=== PATIENT | female | born 1960 | race Caucasian/White ===

== ENCOUNTER 2021-10-28 07:34 | Outpatient (REF) | payer OTHER, SELFPAY ==
[2021-10-28 11:07] LABS: MANUAL DIFF FLAG NO
[2021-10-28 11:16] LABS: Basophils Percent Auto 0.5 % (0-2); Eosinophils Absolute Auto 0.1 X10*3/uL (0.0-0.4); Eosinophils Percent Auto 1.9 % (0-4); Hematocrit 43.9 % (37.0-47.0); Hemoglobin 14.2 g/dl (12.0-16.0); Imm Gran Abs Auto 0.01 X10*3/uL (0.00-0.03); Imm Gran Pct Auto 0.2 % (0.0-0.4); Lymphocytes Absolute Auto 2.5 X10*3/uL (1.2-4.9); Lymphocytes Percent Auto 44.4 % (20-40); Mean Corpuscular HGB Conc 32.3 g/dl (31.0-35.0); Mean Corpuscular Hemoglobin 29.9 pg (27.0-33.0); Mean Corpuscular Volume 92.4 fL (80.0-98.0); Mean Platelet Volume 11.6 fL (9.4-12.3); Monocytes Absolute Auto 0.4 X10*3/uL (0.1-1.2); Monocytes Percent Auto 6.1 % (2-11); Neutrophils Absolute Auto 2.7 x10*3/uL (2.0-8.3); Neutrophils Percent Auto 46.9 % (45-73); Platelet Count 230 X10*3/uL (160-400); Red Blood Count 4.75 X10*6/uL (4.20-5.50); Red Cell Distribution Width 12.7 % (11.0-16.0); White Blood Count 5.7 X10*3/uL (4.8-10.8)
[2021-10-28 11:48] LABS: Alanine Aminotransferase 13 U/L (0-31); Albumin Level 4.1 g/dL (3.5-5.0); Alkaline Phosphatase 69 U/L (39-117); Anion Gap 10 (12-20); Aspartate Amino Transferase 19 U/L (5-31); Bilirubin Total 0.4 mg/dL (0.0-1.0); Blood Urea Nitrogen 14 mg/dL (9-16); Calcium 8.9 mg/dL (8.4-10.2); Carbon Dioxide 28 mmol/L (22-29); Chloride 106 mmol/L (96-108); Cholesterol 198 mg/dL; Estimated Glomerular Filt Rate > 60; Glucose Fasting 87 mg/dL (60-99); HDL Cholesterol 86 mg/dL; LDL Cholesterol Calculated 98 mg/dl; Potassium 3.9 mmol/L (3.3-5.1); Sodium 140 mmol/L (135-145); Total Protein 6.6 g/dL (6.5-8.0); Triglycerides 71 mg/dL
[2021-10-28 12:08] LABS: Thyroid Stimulating Hormone 2.33 uIU/mL (0.32-4.0); Vitamin D 25-OH Total 35.1 ng/mL (>30)
== END 2021-10-28 07:35 | disposition home or self-care (01) ==
LOC: HO.MANLDS 07:34
PROVIDERS: Visit Provider Internal Medicine
DX: Z00.00 Encounter for general adult medical examination without abnormal findings (principal)
CPT/HCPCS: 36415; 80053; 80061; 82306; 84443; 85025

== ENCOUNTER 2023-11-12 07:34 | Outpatient (REF) | payer OTHER, SELFPAY ==
[2023-11-12 13:14] LABS: MANUAL DIFF FLAG NO
[2023-11-12 13:20] LABS: Basophils Percent Auto 0.5 % (0-2); Eosinophils Absolute Auto 0.1 X10*3/uL (0.0-0.4); Eosinophils Percent Auto 1.6 % (0-4); Hematocrit 44.7 % (37.0-47.0); Hemoglobin 14.5 g/dl (12.0-16.0); Imm Gran Abs Auto 0.01 X10*3/uL (0.00-0.03); Imm Gran Pct Auto 0.2 % (0.0-0.4); Lymphocytes Absolute Auto 2.2 X10*3/uL (1.2-4.9); Lymphocytes Percent Auto 39.2 % (20-40); Mean Corpuscular HGB Conc 32.4 g/dl (31.0-35.0); Mean Corpuscular Hemoglobin 30.5 pg (27.0-33.0); Mean Corpuscular Volume 93.9 fL (80.0-98.0); Mean Platelet Volume 11.3 fL (9.4-12.3); Monocytes Absolute Auto 0.3 X10*3/uL (0.1-1.2); Monocytes Percent Auto 5.4 % (2-11); Neutrophils Absolute Auto 2.9 x10*3/uL (2.0-8.3); Neutrophils Percent Auto 53.1 % (45-73); Platelet Count 224 X10*3/uL (160-400); Red Blood Count 4.76 X10*6/uL (4.20-5.50); Red Cell Distribution Width 13.2 % (11.0-16.0); White Blood Count 5.5 X10*3/uL (4.8-10.8)
[2023-11-12 13:54] LABS: Alanine Aminotransferase 14 U/L (0-31); Albumin Level 4.1 g/dL (3.5-5.0); Alkaline Phosphatase 68 U/L (39-117); Anion Gap 11 (12-20); Aspartate Amino Transferase 24 U/L (5-31); Bilirubin Total 0.4 mg/dL (0.0-1.0); Blood Urea Nitrogen 15 mg/dL (9-16); Calcium 9.6 mg/dL (8.4-10.2); Carbon Dioxide 27 mmol/L (22-29); Chloride 106 mmol/L (96-108); Cholesterol 209 mg/dL (<200); Estimated Glomerular Filt Rate > 60; Glucose Random 82 mg/dL (60-115); HDL Cholesterol 90 mg/dL (>40); LDL Cholesterol Calculated 108 mg/dL (<100); Potassium 4.2 mmol/L (3.3-5.1); Sodium 140 mmol/L (135-145); Total Protein 6.6 g/dL (6.5-8.0); Triglycerides 58 mg/dL (<150)
== END 2023-11-12 07:35 | disposition home or self-care (01) ==
LOC: HO.MANLDS 07:34
PROVIDERS: Visit Provider Internal Medicine
DX: Z00.00 Encounter for general adult medical examination without abnormal findings (principal)
CPT/HCPCS: 36415; 80053; 80061; 85025

== ENCOUNTER 2024-11-25 07:37 | Outpatient (REF) | payer MEDICARE, SELFPAY ==
--- OUTSIDE RECORDS SUMMARY | 2024-11-25 07:39 | XMS_ITS | Clinical Summary ---
Author Organization [facility] Address [address] [address] Phone Care Team Providers Care Online Project Manager Name Role Phone Dougie Dawn Primary Care Provider Allergies No known active allergies Medications valACYclovir (VALTREX) 1000 MG tablet X 3 days prn 20 tablet 2 08/20/2023 Active estradiol-noreth indrone acet (ACTIVELLA 0.5) 0.5-0.1 mg per tablet Take 1 tablet by mouth daily. 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 Assessment & Plan (08/20/2023 1:59 PM EDT): Reviewed potential risks and benefits of extended hormone replacement therapy. As she has been off of HRT for a few months, would recommend transdermal estradiol and oral progesterone if she chooses to restart. Discussed alternatives including low- dose SSRI, gabapentin, and Veozah. After discussion, she is interested in a trial of gabapentin nightly. Medication instructions reviewed and Rx sent to pharmacy Assessment & Plan (08/15/2022 12:12 PM EDT): We discussed hx of debilitating mood alteration, sleep issues, vasomotor sx with menopause prior to using HRT. She last tried to stop perhaps nine years ago and sx recurred. She has tried acupuncture for vasomotor sx without relief. We reviewed risks of HRT which increase over years of use and advancing age. She expresses understanding and strongly wants to continue for now; she agrees to trial off HRT after the summer to assess current status of sx. She will call if can't tolerate this for refills as desired. Assessment & Plan (12/09/2020 4:03 PM EDT): Deirdre will continue with HRT regimen at this time. Risks reviewed including blood clot/stroke, cardiovascular events, breast cancer; we briefly discussed data showing that risks do increase with years of use/age. She is aware and opts to continue for now. We reviewed rationale/need for yearly visit/exam/follow up. Encounters Date Type Department Care Team Description 11/12/[address] [facility] Department [address] [place] [address] Dougie Dawn, DO Encounter for screening for osteoporosis (Primary Dx) from Last 3 Months Immunizations Immunization Administration Dates Next Due COVID-19 (Pre-02/12) Pfizer Vaccine, mRNA, PF 07/29/2021,03/08/2021,08/18/2020,2020 Zoster recombinant 01/16/2022,11/14/2021 Family History Medical History Relation Comments No Known Problems Father Hypertension Mother Stroke Mother Relation Status Comments Father Mother Alive Social History Tobacco Use Types Packs/Day Years Used Date Smoking Tobacco: Former Cigarettes 0.3 2.2 0 05/01/1976 - 05/01/1977 Smokeless Tobacco: Never Tobacco Cessation:Counseling Given: Not Answered Alcohol Use Standard Drinks/Week Comments Yes 3 (1 standard drink = 0.6 oz pur e alcohol) socially Education Answer Date Recorded Are you interested in more education? Not on nellie e 08/18/2022 Are you concerned about learning? Not on file 08/18/2022 No 08/18/2022 No 08/18/2022 Digital Access Answer Date Recorded No 09/18/2022 No 09/18/2022 Reliable internet access at home? Not on file 09/18/2022 Device with a working camera? Not on file Comments No Sex and Gender Information Value Date Recorded Sex Assigned at Not on file Legal Sex Female 9:50 PM EDT Gender Identity Not on file Sexual Orientation Not on file Last Filed Vital Signs Vital Sign Reading Time Taken Comments Blood Pressure 118/60 08/20/2023 10:41 AM EDT Pulse - - Temperature - - Respiratory Rate - - Oxygen Saturation - - Inhaled Oxygen Concentration - - Weight 65.3 kg (144 lb) 08/20/2023 10:41 AM EDT Height 165.1 cm (5' 5 ) 08/20/2023 10:41 AM EDT Body Mass Index 23.96 08/20/2023 10:41 AM EDT Plan of Treatment Health Maintenance Due Date Last Done Comments Adult Td,Tdap Booster 1960 LIPID PANEL 1958 DEPRESSION SCREENING 1970 HEPATITIS C SCREENING 1976 COLOGUARD 11/05/2003 COLONOSCOPY 11/05/2003 COLORECTAL CANCER SCREENING 11/05/2003 FIT TEST 11/05/2003 FOBT 11/05/2003 SIGMOIDOSCOPY 11/05/2003 VIRTUAL COLONOSCOPY 11/05/2003 PNEUMOCOCCAL VACCINES (50+ years) (1 of 1 - PCV) 2008 OSTEOPOROSIS SCREENING INITIAL (ONE-TIME) 11/05/2023 COVID-19 VACCINE (2023- season) 2023 07/29/2021, 07/29/2021, 03/08/2021, Additional history exists MAMMOGRAM 03/12/2026 03/12/2024, 05/0 06/2021, 04/10/2018 RSV VACCINE (1 - 1-dose 75+ series) 2033 ZOSTER VACCINES Completed 01/16/2022, 11/14/2021 SMOKING STATUS SCREENING (Once After 26 Yrs) Completed 03/12/2024 HEPATITIS A VACCINES Aged Out No long er eligible based on patient's age to complete this topic HIB VACCINES Aged Out No longer eligi ble based on patient's age to complete this topic MENINGOCOCCAL VACCINES (ACWY) Aged Out No longer eligible based on patient's age to complete this topic MENINGOCOCCAL VACCINES (B) Aged Out N o longer eligible based on patient's age to complete this topic Medical Devices Not on file Procedures Procedure Name Priority Date/Time Associated Diagnosis Comments BI MAMMOGRAM SCREENING WITH TOMOSYNTHESIS WITH CAD (BILATERAL) Routine 03/12/2024 10:36 AM EST Encounter for gynecological examination without abnormal finding from Last 3 Months or Most Recently Relevant to Health Maintenance Results * BI MAMMOGRAM SCREENING WITH TOMOSYNTHESIS WITH CAD (BILATERAL) (03/12/2024 10:36 AM EST) Anatomical Region Laterality Modality Breast Left, Breast Right, Breast Bilateral Bila teral Mammography 03/12/2024 1:16 PM EST Impressions 03/12/2024 1:17 PM EST No mammographic evidence of malignancy in either breast. Annual screening mammography is recommended. BI-RADS 2 BENIGN The patient will be notified of the results and recommendations. Narrative 03/12/2024 1:17 PM EST BI MAMMOGRAM SCREENING WITH TOMOSYNTHESIS WITH CAD (BILATERAL) Additional patient information: Screening. COMPARISON: Comparison is made with relevant prior imaging. Breast composition: There are scattered areas of fibroglandular density. FINDINGS: Previous reduction mammoplasty. No abnormal masses, suspicious calcifications, or other significant findings are identified mammographically in either breast. There has been no interval change. Procedure Note Agueda Cota MD - 03/12/2024 BI MAMMOGRAM SCREENING WITH TOMOSYNTHESIS WITH CAD (BILATERAL) Additional patient information: Screening. COMPARISON: Comparison is made with relevant prior imaging. Breast composition: There are scattered areas of fibroglandular density. FINDINGS: Previous reduction mammoplasty. No abnormal masses, suspicious calcifications, or other significantfindings are identified mammographically in either breast. There has been no interval change. IMPRESSION: No mammographic evidence of malignancy in either breast. Annual screening mammography is recommended. BI-RADS 2 BENIGN The patient will be notified of the results and recommendations. Margie Shirley MD IMG MG EXAMS Final Result from Last 3 Months or Most Recently Relevant to Health Maintenance [place] [address] [address] MEDICARE PPO BLUE REPLACEMENT MEDICARE PART A & B MEDICARE PPO BLUE REPLACEMENT MEDICARE PART A & [place] [address] [place] [address] MEDICARE PPO BLUE REPLACEMENT MEDICARE PART A & B [facility] MEDICARE PPO BLUE REPLACEMENT MEDICARE PART A & B Member Subscriber Plan / Payer (Ef fective 2023-Present) Name:Ladonna Joshi Member ID:[id number] Relation to Subscriber:Self Name:Ladonna Joshi Subscriber ID:[id number] Payer ID:[id number] Group ID:Not on file Type:Medicare Address: [employer] [id number] MEDICARE PART A & B MEDICARE PART A & B Care Teams Online Project Manager Relationship Specialty Start Date End Date Dougie Dawn DO [email or web address] PCP - General Internal Medicine 09/04/18 Additional Source Comments The information contained in this document represents components of the legal health record. It is not the complete legal health record.[facility]
--- OUTSIDE RECORDS SUMMARY | 2024-11-25 07:39 | XMS_ITS | Encounter Summary ---
Author Organization [employer] Address [address] [place] [address] [address] [place] [address] Care Team Providers Care Sorter Pricer Name Role Phone Unavailable Primary Care Provider Unavailabl e Encounter Details Date Type Department Care Team (Latest Contact Info) Description 02/21/[address] [facility] CONVERSIONS Dental, Provider, DDS Social History Tobacco Use Types Packs/Day Years Used Date Smoking Tobacco: Never Assessed Comments Unknown Sex and Gender Information Value Date Recorded Sex Assigned at Female 02/20/2022 10:36 AM EDT Legal Sex Female 10:36 AM EDT Gender Identity Female 02/20/2022 10:36 AM EDT Sexual Orientation Straight 02/20/2022 10 :36 AM EDT documented as of this encounter Plan of Treatment Not on file documented as of this encounter Visit Diagnoses Not on filedocumented in this encounter
--- OUTSIDE RECORDS SUMMARY | 2024-11-25 07:39 | XMS_ITS | Clinical Summary ---
Author Organization [facility] Address [address] [place] [address] Care Team Providers Care Hat Blocking Operator Name Role Phone Unavailable Primary Care Provider Unavailabl e Allergies No known active allergies Medications Medication Sig Dispensed Refills Start Date End Date Status DUAVEE 0.45-20 MG TABSIndications:Postme nopausal HRT (hormone replacement therapy) Take 1 tablet by mouth daily. 30 tablet 5 06/17/2018 Active valACYclovir (VALTREX) 1000 MG tabletIndications:HSV (herpes simplex virus) anogenital infection Take 1 tablet (1,000 mg total) by mouth daily as needed (for 3 days). 30 tablet 0 06/17/2018 Active Active Problems Problem Noted Date Diagnosed Date Marijuana use 06/17/2018 Breast cancer screening 12/11/2017 Colon cancer screening 12/11/2017 Encounter for gynecological examination without abnormal finding 08/11/2016 Cervical cancer screening 08/11/2016 Osteopenia 08/11/2016 HSV (herpes simplex virus) anogenital infection 07/02/2015 Menopausal and postmenopausal disorder 5 Postmenopausal HRT (hormone replacement therapy) 11/17/2014 Family History Medical History Relation Name Comments Hypertension Mother 76 Obesity Mother 76 Stroke Mother 76 Relation Name Status Comments Mother 76 Alive Social History Tobacco Use Types Packs/Day Years Used Date Smoking Tobacco: Former Cigarettes 0 0 Q uit: 1981 Smokeless Tobacco: Never Comments:pt quit 1981; date unknown Alcohol Use Standard Drinks/Week Comments Yes 2 (1 standard drink = 0.6 oz pur e alcohol) social weekends Sex and Gender Information Value Date Recorded Sex Assigned at Female 06/17/2018 10:49 AM EST Gender Identity Female 06/17/2018 10:49 AM EST Sexual Orientation Straight 06/17/2018 10 :49 AM EST Last Filed Vital Signs Vital Sign Reading Time Taken Comments Blood Pressure 110/80 06/17/2018 10:43 AM EST Pulse - - Temperature - - Respiratory Rate - - Oxygen Saturation - - Inhaled Oxygen Concentration - - Weight 67.7 kg (149 lb 3.2 oz) 06/17/2018 10:43 AM EST Height 165.1 cm (5' 5 ) 06/17/2018 10:43 AM EST Body Mass Index 24.83 06/17/2018 10:43 AM EST Plan of Treatment Health Maintenance Due Date Last Done Comments Hepatitis C Screening 1960 COVID-19 Vaccine (#1) 05/07/1959 Depression Screening 1970 DTap / Tdap / Td (1 - Tdap) 1977 Colon Cancer Screening (Colonoscopy) 11/05/2003 Breast Cancer Screening (Mammogram) 2008 Shingrix-Zoster Vaccine (1 o f 2) 2008 Preventative Health Evaluation 12/11/2018 12/11/2017, 08/11/2016 Fall Risk Assessment 11/05/2023 Osteoporosis Screening (DEXA Scan) 11/05/2023 Pneumococcal Vaccine (1 of 1 - PCV) 11/05/2023 Influenza Vaccine (#1) 2024 RSV Adult > 60+ Yrs or (1 - 1-dose 75+ series) 2033 Hepatitis B Vaccines Aged Out No long er eligible based on patient's age to complete this topic RSV Ped < 20 months Aged Out No longe r eligible based on patient's age to complete this topic
[2024-11-25 13:24] LABS: MANUAL DIFF FLAG NO
[2024-11-25 13:42] LABS: Hematocrit 42.8 % (37.0-47.0); Hemoglobin 14.3 g/dl (12.0-16.0); Imm Gran Abs Auto 0.01 X10*3/uL (0.00-0.03); Imm Gran Pct Auto 0.2 % (0.0-0.4); Lymphocytes Absolute Auto 2.2 X10*3/uL (1.2-4.9); Mean Corpuscular HGB Conc 33.4 g/dl (31.0-35.0); Mean Corpuscular Hemoglobin 30.5 pg (27.0-33.0); Mean Corpuscular Volume 91.3 fL (80.0-98.0); NRBC Abs Auto 0.000 X10*3/uL (0.0-0.012); NRBC Pct Auto 0.0 /100WBC (0.0-0.2); Platelet Count 227 X10*3/uL (160-400); Red Blood Count 4.69 X10*6/uL (4.20-5.50); White Blood Count 6.1 X10*3/uL (4.8-10.8)
[2024-11-25 13:54] LABS: Alanine Aminotransferase 22 U/L (0-31); Albumin Level 4.1 g/dL (3.5-5.0); Alkaline Phosphatase 61 U/L (39-117); Anion Gap 11 (12-20); Aspartate Amino Transferase 30 U/L (5-31); Blood Urea Nitrogen 20 mg/dL (9-16); Calcium 8.5 mg/dL (8.4-10.2); Carbon Dioxide 26 mmol/L (22-29); Chloride 108 mmol/L (96-108); Cholesterol 231 mg/dL (<200); Estimated Glomerular Filt Rate 60; HDL Cholesterol 88 mg/dL (>40); Potassium 3.9 mmol/L (3.3-5.1); Sodium 141 mmol/L (135-145); Total Protein 6.4 g/dL (6.5-8.0); Triglycerides 49 mg/dL (<150)
== END 2024-11-25 07:38 | disposition home or self-care (01) ==
LOC: HO.MANLDS 07:37
PROVIDERS: Visit Provider Internal Medicine
DX: Z00.00 Encounter for general adult medical examination without abnormal findings (principal); Z13.6 Encounter for screening for cardiovascular disorders; Z12.11 Encounter for screening for malignant neoplasm of colon
CPT/HCPCS: 36415; 80053; 80061; 85025

== ENCOUNTER 2024-11-27 12:38 | Outpatient (REF) | payer MEDICARE, SELFPAY ==
--- OUTSIDE RECORDS SUMMARY | 2024-11-27 12:43 | XMS_ITS | Clinical Summary ---
Author Organization [facility] Address [address] [address] Phone Care Team Providers Care Stocking And Box Shop Supervisor Name Role Phone Dougie Dawn Primary Care Provider [phone] Allergies No known active allergies Medications valACYclovir [...] Department Care Team Description 11/12/2024 Transcribe Orders [facility] Department [address] [place] [address] Dougie Dawn, DO Encounter for screening for [...] 08/20/2023 10:41 AM EDT Plan of Treatment Upcoming Encounters Date Type Department Care Team (Late st Contact Info) Description 03/24/2025 7:00 PM EST Appointment [facility], Bone Density - [facility] [address] [place] [address] Dougie Dawn DO [address] [facility] [address] [place] [address] [email or web address] Health Maintenance Due Date Last Done Comments Adult Td,Tdap Booster 1960 LIPID PANEL 1958 DEPRESSION SCREENING 1970 HEPATITIS C SCREENING 1976 COLOGUARD 11/05/2003 COLONOSCOPY 11/05/2003 COLORECTAL CANCER SCREENING 11/05/2003 FIT TEST 11/05/2003 FOBT 11/05/2003 SIGMOIDOSCOPY 11/05/2003 VIRTUAL COLONOSCOPY 11/05/2003 PNEUMOCOCCAL VACCINES (50+ years) (1 of 1 - PCV) 2008 OSTEOPOROSIS SCREENING INITIAL (ONE-TIME) 11/05/2023 COVID-19 VACCINE ( - 2023- season) 2023 07/29/2021, 07/29/2021, 03/08/2021, Additional history [...] Most Recently Relevant to Health Maintenance [place] [address] [place] [address] MEDICARE PPO BLUE REPLACEMENT MEDICARE PART A & [place] [address] [address] MEDICARE PPO BLUE REPLACEMENT MEDICARE PART A & B MEDICARE PART A & B MEDICARE PART A & B [facility] MEDICARE PPO BLUE REPLACEMENT MEDICARE PART A & B [place] [place] MEDICARE PPO BLUE REPLACEMENT MEDICARE PART A & B Care Teams Stocking And Box Shop Supervisor Relationship Specialty Start Date End Date Dougie Dawn DO [email or web address] PCP - General Internal Medicine 09/04/18 Additional Source Comments The information contained in this document represents components of the legal health record. It is not the complete legal health record.[facility]
--- OUTSIDE RECORDS SUMMARY | 2024-11-27 12:43 | XMS_ITS | Clinical Summary ---
Author Organization [facility] Address [address] [place] [address] Care Team Providers Care Stage Builder Name Role Phone Unavailable Primary Care Provider [...]
--- OUTSIDE RECORDS SUMMARY | 2024-11-27 12:43 | XMS_ITS | Encounter Summary ---
Author Organization [employer] Address [address] [facility] [address] [place] [address] Care Team Providers Care Wine And Spirits Clerk Name Role Phone Unavailable Primary Care Provider Unavailabl e Encounter Details Date Type Department Care Team (Latest Contact Info) Description 02/21/2019 Abstract [facility] CONVERSIONS Dental, Provider, DDS Social History Tobacco [...]
[2024-11-27 13:01] LABS: FIT Date 1 8/6/2025; FIT Date 2 8/7/2025; FIT Int Ctl YES; FIT1 NEGATIVE (NEGATIVE); FIT2 NEGATIVE (NEGATIVE)
[2024-11-27 13:02] LABS: FIT Lot M502755
== END 2024-11-27 12:39 | disposition home or self-care (01) ==
LOC: HO.MANLNP 12:38
PROVIDERS: Visit Provider Internal Medicine
DX: Z12.11 Encounter for screening for malignant neoplasm of colon (principal)
CPT/HCPCS: 82274